=== PATIENT | female | born 1990 | race African-American/Black ===

== ENCOUNTER 2021-10-19 21:41 | Emergency (ER) | payer OTHER, SELFPAY ==
[2021-10-19 21:52] VITALS: BP 105/76; PULSE 82; RESP 20; TEMP 36.8; O2SAT 100; BMI 30.8
--- NOTE | 2021-10-19 22:54 | ED_ITS ---
HPI - Psych General Chief Complaint: Psychiatric Symptoms <ARABELLA Krishnamurthy Last Filed: 10/20/21 00:45> Stated Complaint: crisis <ARABELLA Krishnamurthy Last Filed: 10/20/21 00:45> Time Seen by Provider: 10/19/21 22:43 <ARABELLA Krishnamurthy Last Filed: 10/20/21 00:45> Source: patient <ARABELLA Krishnamurthy Last Filed: 10/20/21 00:45> Mode of arrival: ambulatory <ARABELLA Krishnamurthy Last Filed: 10/20/21 00:45> Limitations: no limitations <ARABELLA Krishnamurthy Last Filed: 10/20/21 00:45> History of Present Illness HPI Narrative: 31-year-old female past medical history of PE MDD, depression, anxiety, ADHD presenting to the emergency department with depression, intermittent suicidal ideation without particular plan x1 day. Patient tells me that this morning she was not doing well at all, she tells me this always happens to her before she gets her period, she tells me she is scheduled to see her therapist every Thursday however due to the holiday she will be able to see them, she tells me she is feeling extremely depressed, and was crying often this morning. She had thoughts of wanting to kill herself however no particular plan. She tells me she is not feeling as way anymore however she is worried that she was feeling this way earlier. Denies drugs, alcohol and tobacco. Denies visual and auditory hallucinations. Denies homicidal ideation and tactile hallucinations. Patient denies any medical complaints at this time. <ARABELLA Krishnamurthy Last Filed: 10/20/21 00:45> MD complaint: suicidal ideation and feels depressed <ARABELLA Krishnamurthy Last Filed: 10/20/21 00:45> Onset (ago): day(s) (1) <ARABELLA Krishnamurthy Last Filed: 10/20/21 00:45> Duration: constant <ARABELLA Krishnamurthy Last Filed: 10/20/21 00:45> History of same: Yes <ARABELLA Krishnamurthy Last Filed: 10/20/21 00:45> Relieving factors: none <ARABELLA Krishnamurthy Last Filed: 10/20/21 00:45> Exacerbating factors: none <ARABELLA Krishnamurthy Last Filed: 10/20/21 00:45> Related Data Allergies/Adverse Reactions: Allergies Allergy/AdvReac Type Severity Reaction Status Date / Time ziprasidone [From [facility] [place]] Allergy Intermediate RASH Unverified 11/03/19 15:59 <ARABELLA Krishnamurthy Last Filed: 10/20/21 00:45> Review of Systems Review of Systems: Constitutional : No Weight loss, No Fever, No Chills, No Fatigue, No Malaise ENT/Mouth : No sore throat, No Rhinorrhea Eyes: No Eye Pain, No Swelling, No Redness Cardiovascular : No Chest Pain, No SOB, No Dyspnea on Exertion, No Orthopnea, No Edema, No Palpitations Respiratory : No Cough, No Sputum, No Wheezing Gastrointestinal : No Nausea, No Vomiting, No Diarrhea, No Constipation, No abdominal Pain, No Hematochezia, No Melena Genitourinary : No Dysuria, No Urinary Frequency, No Hematuria, Musculoskeletal : No joint pain, No Myalgias, No Joint Swelling Skin : No Skin Lesions, No rash Neuro : No Weakness, No Numbness, No Dizziness, No Headache Psych : + Anxiety/Panic, + Depression, + SI, No HI All other systems reviewed and are negative <ARABELLA Krishnamurthy Last Filed: 10/20/21 00:45> Yes all other systems are reviewed and are negative <ARABELLA Krishnamurthy Last Filed: 10/20/21 00:45> [facility] Past Medical History Attestation statement: The following information was validated with the patient. <ARABELLA Krishnamurthy Last Filed: 10/20/21 00:45> Source: old records reviewed and nursing notes reviewed <ARABELLA Krishnamurthy Last Filed: 10/20/21 00:45> Social History Social History: Social History Advance Directives: No Advance Directives Information Provided: Yes <ARABELLA Krishnamurthy Last Filed: 10/20/21 00:45> Physical Exam Vital Signs: Vital Signs: Last Vital Signs Temp 98.3 F 10/20/21 00:25 Pulse 61 10/20/21 00:25 Resp 17 10/20/21 00:25 BP 108/63 10/20/21 00:25 Pulse Ox 99 10/20/21 00:25 O2 Del Method 10/20/21 00:25 BMI result Body Mass Index 30.8 Vital signs stable <ARABELLA Krishnamurthy - Last Filed: 10/20/21 00:45> Vital Signs: Last Vital Signs Temp 98.3 F 10/20/21 00:25 Pulse 61 10/20/21 00:25 Resp 17 10/20/21 00:25 BP 108/63 10/20/21 00:25 Pulse Ox 99 10/20/21 00:25 O2 Del Method 10/20/21 00:25 BMI result Body Mass Index 30.8 <Mak Beach MD - Last Filed: 10/20/21 04:33> Appearance: Alert.? Oriented X3.? No acute distress.? Head: Normocephalic, atraumatic, no step-offs or deformities Eyes: Pupils equal, round and reactive to light.? ENT: Pharynx normal.? Neck: Normal inspection.? Neck supple.? CVS: Normal heart rate and rhythm.? Pulses normal.? Respiratory: No respiratory distress.? Breath sounds normal.? Abdomen: Soft and nontender.? Skin: Skin warm and dry.? Normal skin color.? Normal skin turgor.? Extremities: No lower extremity edema.? No calf ttp. 5/5 strength to bilateral upper and lower extremities Back: No midline tenderness, no C-spine tenderness, full range of motion, no CVA tenderness bilaterally Neuro: Oriented X 3.? No motor deficit.? No sensory deficit. CN 2-12 intact <ARABELLA Krishnamurthy - Last Filed: 10/20/21 00:45> Course Reevaluation(s) Reevaluation #1: CBC within normal limits. Chemistry with no acute electrolyte abnormalities requiring intervention. UA without infection. Ethanol, salicylates and acetaminophen negative. COVID negative. Urine toxicology pending. <ARABELLA Krishnamurthy - Last Filed: 10/20/21 00:45> Time: 00:21 <ARABELLA Krishnamurthy - Last Filed: 10/20/21 00:45> Reevaluation #2: Utox pending. At this time patient will be placed into physician obse rvation to allow more time to be evaluated by the behavioral health team. At time observation was started patient common cooperative no acute distress. Will continue to monitor. <ARABELLA Krishnamurthy - Last Filed: 10/20/21 00:45> Time: 00:21 <ARABELLA Krishnamurthy - Last Filed: 10/20/21 00:45> Reevaluation #3: patient wanted to the the emergency department, I did review the note by the physician housekeeping assistant I did talk to the patient. The patient did have suicidal ideation but no active plan. The patient was placed on a Section 12 and the patient is willing to stay in the emergency department to evaluated by Crisis. <Mak Beach MD - Last Filed: 10/20/21 04:33> Time: 04:33 <Mak Beach MD - Last Filed: 10/20/21 04:33> MDM - Psych MDM Narrative Medical decision making narrative: 2250 31-year-old female presents with intermittent suicidal ideation, depression, PMDD x1 day. Physical examination benign. Plan at this time is medical clearance and evaluation by the behavioral health team. <ARABELLA Krishnamurthy - Last Filed: 10/20/21 00:45> Medical Records Attestation: I reviewed the patient's medical records. <ARABELLA Krishnamurthy - Last Filed: 10/20/21 00:45> Lab Data Attestation: I reviewed the patient's lab results. <ARABELLA Krishnamurthy Last Filed: 10/20/21 00:45> Result diagrams: : 10/19/21 23:33 10/19/21 23:33 <ARABELLA Krishnamurthy - Last Filed: 10/20/21 00:45> Labs: Lab Results 10/19/21 10/19/21 10/19/21 Range/Units 23:33 23:33 23:33 WBC 6.2 (4.8-10.8) X10*3/uL RBC 4.87 (4.20-5.50) X10*6/uL Hgb 14.7 (12.0-16.0) g/dl Hct 44.4 (37.0-47.0) % MCV 91.2 (80.0-98.0) fL MCH 30.2 (27.0-33.0) pg MCHC 33.1 (31.0-35.0) g/dl RDW 12.9 (11.0-16.0) % Plt Count 394 (160-400) X10*3/uL MPV 9.4 (9.4-12.3) fL Immature Gran % (Auto) 0.2 (0.0-0.4) % Neut % (Auto) 31.9 L (45-73) % Lymph % (Auto) 52.0 H (20-40) % [place]hen[place] % (Auto) 8.1 (2-11) % Eos % (Auto) 6.5 H (0-4) % Baso % (Auto) 1.3 (0-2) % Lymph # (Auto) 3.2 (1.2-4.9) X10*3/uL [place] # (Auto) 0.5 (0.1-1.2) X10*3/uL Eos # (Auto) 0.4 (0.0-0.4) X10*3/uL Baso # (Auto) 0.1 (0.0-0.2) X10*3/uL Abs Immat Gran (auto) 0.01 (0.00-0.03) X10*3/uL Absolute Neuts (auto) 2.0 (2.0-8.3) x10*3/uL Absolute Nucleated RBC 0.000 (0.0-0.012) X10*3/uL Nucleated RBC % (auto) 0.0 (0.0-0.2) /100WBC Sodium 141 (135-145) mmol/L Potassium 4.2 (3.3-5.1) mmol/L Chloride 104 (96-108) mmol/L Carbon Dioxide 27 (22-29) mmol/L Anion Gap 14 (12-20) BUN 19 H (9-16) mg/dL Creatinine 0.93 (0.5-1.4) mg/dL Estim Creat Clear Calc 77.4 Estimated GFR > 60 Random Glucose 92 (60-115) mg/dL Calcium 9.0 (8.4-10.2) mg/dL Magnesium 2.0 (1.6-2.6) mg/dL Total Bilirubin 0.5 (0.0-1.0) mg/dL AST 20 (5-31) U/L ALT 15 (0-31) U/L Alkaline Phosphatase 57 (39-117) U/L Total Protein 6.6 (6.5-8.0) g/dL Albumin 3.9 (3.5-5.0) g/dL Urine Color Urine Appearance Urine pH (5.0-9.0) Ur Specific [place] (1.005-1.025) Urine Protein (Neg-Trace) mg/dL Urine Glucose (UA) (Negative) mg/dL Urine Ketones (Negative) mg/dL Urine Blood (Negative) Urine Nitrite (Negative) Ur Leukocyte Esterase (Negative) Salicylates < 5.0 L (15-30) mg/dL Urine Opiates Screen (Not Detect) Urine Fentanyl Screen (Not Detect) Acetaminophen < 1 (<30) mcg/mL Ur Barbiturates Screen (Not Detect) Ur Phencyclidine Scrn (Not Detect) Ur Amphetamines Screen (Not Detect) U Benzodiazepines Scrn (Not Detect) Urine Cocaine Screen (Not Detect) U Marijuana (THC) Screen (Not Detect) Ethyl Alcohol < 10 mg/dL COVID-19 ([facility]) Negative (Negative) COVID-19 Clin Com See Note 10/19/21 10/19/21 Range/Units 23:47 23:47 WBC (4.8-10.8) X10*3/uL RBC (4.20-5.50) X10*6/uL Hgb (12.0-16.0) g/dl Hct (37.0-47.0) % MCV (80.0-98.0) fL MCH (27.0-33.0) pg MCHC (31.0-35.0) g/dl RDW (11.0-16.0) % Plt Count (160-400) X10*3/uL MPV (9.4-12.3) fL Immature Gran % (Auto) (0.0-0.4) % Neut % (Auto) (45-73) % Lymph % (Auto) (20-40) % [place]hen[place] % (Auto) (2-11) % Eos % (Auto) (0-4) % Baso % (Auto) (0-2) % Lymph # (Auto) (1.2-4.9) X10*3/uL [place] # (Auto) (0.1-1.2) X10*3/uL Eos # (Auto) (0.0-0.4) X10*3/uL Baso # (Auto) (0.0-0.2) X10*3/uL Abs Immat Gran (auto) (0.00-0.03) X10*3/uL Absolute Neuts (auto) (2.0-8.3) x10*3/uL Absolute Nucleated RBC (0.0-0.012) X10*3/uL Nucleated RBC % (auto) (0.0-0.2) /100WBC Sodium (135-145) mmol/L Potassium (3.3-5.1) mmol/L Chloride (96-108) mmol/L Carbon Dioxide (22-29) mmol/L Anion Gap (12-20) BUN (9-16) mg/dL Creatinine (0.5-1.4) mg/dL Estim Creat Clear Calc Estimated GFR Random Glucose (60-115) mg/dL Calcium (8.4-10.2) mg/dL Magnesium (1.6-2.6) mg/dL Total Bilirubin (0.0-1.0) mg/dL AST (5-31) U/L ALT (0-31) U/L Alkaline Phosphatase (39-117) U/L Total Protein (6.5-8.0) g/dL Albumin (3.5-5.0) g/dL Urine Color Yellow Urine Appearance Clear Urine pH 6.0 (5.0-9.0) Ur Specific [place] >= 1.030 H (1.005-1.025) Urine Protein Negative (Neg-Trace) mg/dL Urine Glucose (UA) Negative (Negative) mg/dL Urine Ketones Negative (Negative) mg/dL Urine Blood Negative (Negative) Urine Nitrite Negative (Negative) Ur Leukocyte Esterase Negative (Negative) Salicylates (15-30) mg/dL Urine Opiates Screen Not Detected (Not Detect) Urine Fentanyl Screen Not Detected (Not Detect) Acetaminophen (<30) mcg/mL Ur Barbiturates Screen Not Detected (Not Detect) Ur Phencyclidine Scrn Not Detected (Not Detect) Ur Amphetamines Screen POSITIVE H (Not Detect) U Benzodiazepines Scrn Not Detected (Not Detect) Urine Cocaine Screen Not Detected (Not Detect) U Marijuana (THC) Screen POSITIVE H (Not Detect) Ethyl Alcohol mg/dL COVID-19 ([facility]) (Negative) COVID-19 Clin Com <ARABELLA Krishnamurthy - Last Filed: 10/20/21 00:45> Lab Results 10/19/21 10/19/21 10/19/21 Range/Units 23:33 23:33 23:33 WBC 6.2 (4.8-10.8) X10*3/uL RBC 4.87 (4.20-5.50) X10*6/uL Hgb 14.7 (12.0-16.0) g/dl Hct 44.4 (37.0-47.0) % MCV 91.2 (80.0-98.0) fL MCH 30.2 (27.0-33.0) pg MCHC 33.1 (31.0-35.0) g/dl RDW 12.9 (11.0-16.0) % Plt Count 394 (160-400) X10*3/uL MPV 9.4 (9.4-12.3) fL Immature Gran % (Auto) 0.2 (0.0-0.4) % Neut % (Auto) 31.9 L (45-73) % Lymph % (Auto) 52.0 H (20-40) % Mchen[place] % (Auto) 8.1 (2-11) % Eos % (Auto) 6.5 H (0-4) % Baso % (Auto) 1.3 (0-2) % Lymph # (Auto) 3.2 (1.2-4.9) X10*3/uL [place] # (Auto) 0.5 (0.1-1.2) X10*3/uL Eos # (Auto) 0.4 (0.0-0.4) X10*3/uL Baso # (Auto) 0.1 (0.0-0.2) X10*3/uL Abs Immat Gran (auto) 0.01 (0.00-0.03) X10*3/uL Absolute Neuts (auto) 2.0 (2.0-8.3) x10*3/uL Absolute Nucleated RBC 0.000 (0.0-0.012) X10*3/uL Nucleated RBC % (auto) 0.0 (0.0-0.2) /100WBC Sodium 141 (135-145) mmol/L Potassium 4.2 (3.3-5.1) mmol/L Chloride 104 (96-108) mmol/L Carbon Dioxide 27 (22-29) mmol/L Anion Gap 14 (12-20) BUN 19 H (9-16) mg/dL Creatinine 0.93 (0.5-1.4) mg/dL Estim Creat Clear Calc 77.4 Estimated GFR > 60 Random Glucose 92 (60-115) mg/dL Calcium 9.0 (8.4-10.2) mg/dL Magnesium 2.0 (1.6-2.6) mg/dL Total Bilirubin 0.5 (0.0-1.0) mg/dL AST 20 (5-31) U/L ALT 15 (0-31) U/L Alkaline Phosphatase 57 (39-117) U/L Total Protein 6.6 (6.5-8.0) g/dL Albumin 3.9 (3.5-5.0) g/dL Urine Color Urine Appearance Urine pH (5.0-9.0) Ur Specific [place] (1.005-1.025) Urine Protein (Neg-Trace) mg/dL Urine Glucose (UA) (Negative) mg/dL Urine Ketones (Negative) mg/dL Urine Blood (Negative) Urine Nitrite (Negative) Ur Leukocyte Esterase (Negative) Salicylates < 5.0 L (15-30) mg/dL Urine Opiates Screen (Not Detect) Urine Fentanyl Screen (Not Detect) Acetaminophen < 1 (<30) mcg/mL Ur Barbiturates Screen (Not Detect) Ur Phencyclidine Scrn (Not Detect) Ur Amphetamines Screen (Not Detect) U Benzodiazepines Scrn (Not Detect) Urine Cocaine Screen (Not Detect) U Marijuana (THC) Screen (Not Detect) Ethyl Alcohol < 10 mg/dL COVID-19 ([facility]) Negative (Negative) COVID-19 Clin Com See Note 10/19/21 10/19/21 Range/Units 23:47 23:47 WBC (4.8-10.8) X10*3/uL RBC (4.20-5.50) X10*6/uL Hgb (12.0-16.0) g/dl Hct (37.0-47.0) % MCV (80.0-98.0) fL MCH (27.0-33.0) pg MCHC (31.0-35.0) g/dl RDW (11.0-16.0) % Plt Count (160-400) X10*3/uL MPV (9.4-12.3) fL Immature Gran % (Auto) (0.0-0.4) % Neut % (Auto) (45-73) % Lymph % (Auto) (20-40) % [place] % (Auto) (2-11) % Eos % (Auto) (0-4) % Baso % (Auto) (0-2) % Lymph # (Auto) (1.2-4.9) X10*3/uL [place] # (Auto) (0.1-1.2) X10*3/uL Eos # (Auto) (0.0-0.4) X10*3/uL Baso # (Auto) (0.0-0.2) X10*3/uL Abs Immat Gran (auto) (0.00-0.03) X10*3/uL Absolute Neuts (auto) (2.0-8.3) x10*3/uL Absolute Nucleated RBC (0.0-0.012) X10*3/uL Nucleated RBC % (auto) (0.0-0.2) /100WBC Sodium (135-145) mmol/L Potassium (3.3-5.1) mmol/L Chloride (96-108) mmol/L Carbon Dioxide (22-29) mmol/L Anion Gap (12-20) BUN (9-16) mg/dL Creatinine (0.5-1.4) mg/dL Estim Creat Clear Calc Estimated GFR Random Glucose (60-115) mg/dL Calcium (8.4-10.2) mg/dL Magnesium (1.6-2.6) mg/dL Total Bilirubin (0.0-1.0) mg/dL AST (5-31) U/L ALT (0-31) U/L Alkaline Phosphatase (39-117) U/L Total Protein (6.5-8.0) g/dL Albumin (3.5-5.0) g/dL Urine Color Yellow Urine Appearance Clear Urine pH 6.0 (5.0-9.0) Ur Specific [place] >= 1.030 H (1.005-1.025) Urine Protein Negative (Neg-Trace) mg/dL Urine Glucose (UA) Negative (Negative) mg/dL Urine Ketones Negative (Negative) mg/dL Urine Blood Negative (Negative) Urine Nitrite Negative (Negative) Ur Leukocyte Esterase Negative (Negative) Salicylates (15-30) mg/dL Urine Opiates Screen Not Detected (Not Detect) Urine Fentanyl Screen Not Detected (Not Detect) Acetaminophen (<30) mcg/mL Ur Barbiturates Screen Not Detected (Not Detect) Ur Phencyclidine Scrn Not Detected (Not Detect) Ur Amphetamines Screen POSITIVE H (Not Detect) U Benzodiazepines Scrn Not Detected (Not Detect) Urine Cocaine Screen Not Detected (Not Detect) U Marijuana (THC) Screen POSITIVE H (Not Detect) Ethyl Alcohol mg/dL COVID-19 ([facility]) (Negative) COVID-19 Clin Com <Mak Beach MD - Last Filed: 10/20/21 04:33> Critical Care Time Critical Care Time Critical Care Time: No <ARABELLA Krishnamurthy - Last Filed: 10/20/21 00:45> Discharge Plan Discharge Clinical Impression: Anxiety, Depression, PMDD (premenstrual dysphoric disorder) <ARABELLA Krishnamurthy - Last Filed: 10/20/21 00:45> Patient Disposition: Still a Patient <ARABELLA Krishnamurthy - Last Filed: 10/20/21 00:45>
[2021-10-19 23:39] LABS: Basophils Absolute Auto 0.1 X10*3/uL (0.0-0.2); Basophils Percent Auto 1.3 % (0-2); Eosinophils Absolute Auto 0.4 X10*3/uL (0.0-0.4); Eosinophils Percent Auto 6.5 % (0-4); Hematocrit 44.4 % (37.0-47.0); Hemoglobin 14.7 g/dl (12.0-16.0); Imm Gran Abs Auto 0.01 X10*3/uL (0.00-0.03); Imm Gran Pct Auto 0.2 % (0.0-0.4); Lymphocytes Absolute Auto 3.2 X10*3/uL (1.2-4.9); MANUAL DIFF FLAG NO; Mean Corpuscular HGB Conc 33.1 g/dl (31.0-35.0); Mean Corpuscular Hemoglobin 30.2 pg (27.0-33.0); Mean Corpuscular Volume 91.2 fL (80.0-98.0); Mean Platelet Volume 9.4 fL (9.4-12.3); Monocytes Absolute Auto 0.5 X10*3/uL (0.1-1.2); Monocytes Percent Auto 8.1 % (2-11); Neutrophils Percent Auto 31.9 % (45-73); Platelet Count 394 X10*3/uL (160-400); Red Blood Count 4.87 X10*6/uL (4.20-5.50); Red Cell Distribution Width 12.9 % (11.0-16.0); White Blood Count 6.2 X10*3/uL (4.8-10.8)
--- NOTE | 2021-10-19 23:47 | PC.NURSE ---
PT changed over and put with a sitter. Pt states that she is not SI but this morning felt like she wanted to . She has no plan to kill herself. Just wants to talk to someone because her usual therapy session in on and because of the holiday it was cancelled. Pt belongings locked in locker #10.
[2021-10-19 23:56] LABS: COVID-19 Test Negative (Negative)
[2021-10-19 23:59] LABS: Appearance Urine Clear; Color Urine Yellow; Glucose Urine UA Negative (Negative); Leukocyte Esterase Urine Negative (Negative); Nitrite Urine Negative (Negative); Specific Gravity - Urine >= 1.030 (1.005-1.025); Urine Blood Negative (Negative); Urine Ketones Negative (Negative); Urine Protein Negative (Neg-Trace)
[2021-10-20] LABS: Alanine Aminotransferase 15 U/L (0-31); Albumin Level 3.9 g/dL (3.5-5.0); Alkaline Phosphatase 57 U/L (39-117); Anion Gap 14 (12-20); Aspartate Amino Transferase 20 U/L (5-31); Bilirubin Total 0.5 mg/dL (0.0-1.0); Blood Urea Nitrogen 19 mg/dL (9-16); Carbon Dioxide 27 mmol/L (22-29); Chloride 104 mmol/L (96-108); Creatinine Clr Calc Pharmacy 77.4; Estimated Glomerular Filt Rate > 60; Ethanol < 10 mg/dL; Glucose Random 92 mg/dL (60-115); Potassium 4.2 mmol/L (3.3-5.1); Sodium 141 mmol/L (135-145); Total Protein 6.6 g/dL (6.5-8.0)
[2021-10-20 00:13] LABS: Acetaminophen LAB < 1 mcg/mL (<30); Salicylate < 5.0 mg/dL (15-30)
--- NOTE | 2021-10-20 00:22 | PC.NURSE ---
Pt resting, 1:[address] bedside, safety maintained, this RN continues to monitor.
[2021-10-20 00:25] VITALS: BP 108/63; PULSE 61; RESP 17; TEMP 36.8; O2SAT 99
[2021-10-20 01:06] LABS: Amphetamine Screen Urine POSITIVE (Not Detect); Barbiturates, Urine Not Detected (Not Detect); Benzodiazepines Screen Urine Not Detected (Not Detect); Cannabinoid Screen Urine POSITIVE (Not Detect); Cocaine Screen Urine Not Detected (Not Detect); Fentanyl, urine Not Detected (Not Detect); Opiate Screen Urine Not Detected (Not Detect); Phencyclidine Screen Urine Not Detected (Not Detect)
--- NOTE | 2021-10-20 02:15 | PC.NURSE ---
Pt resting, 1:1 sitter at bedside, safety maintained, this RN continues to monitor.
--- NOTE | 2021-10-20 05:04 | PC.NURSE ---
Pt requesting to go home, Dr Barajas made aware, Pt is now a Sec12, Pt made aware, Pt remained, calm/cooperative/pleasant.
--- NOTE | 2021-10-20 05:05 | PC.NURSE ---
Pt resting, 1:1 sitter at bedside, safety maintained, this RN continues to monitor.
[2021-10-20 06:40] VITALS: BP 128/71; PULSE 64; RESP 14; O2SAT 100
--- NOTE | 2021-10-20 08:30 | PC.NURSE ---
Handoff received. Pt is currently sleeping. No apparent distress. Breaths are even and unlabored. Will continue to monitor.
== END 2021-10-20 10:45 | disposition home or self-care (01) ==
PROVIDERS: Physician Assistant; Emergency Provider Emergency Medicine Emergency Medical Services; PCP Internal Medicine
DX: F32.81 Premenstrual dysphoric disorder (principal); R45.851 Suicidal ideations; F41.9 Anxiety disorder, unspecified; F32.9 Major depressive disorder, single episode, unspecified; F90.9 Attention-deficit hyperactivity disorder, unspecified type; Z20.822 Contact with and (suspected) exposure to COVID-19; F12.90 Cannabis use, unspecified, uncomplicated
CPT/HCPCS: 80053; 80143; 80179; 80307; 81003; 82077; 83735; 85025; 87635; 99283; 99285

== ENCOUNTER 2021-10-27 22:07 | Emergency (ER) | payer OTHER, SELFPAY ==
[2021-10-27 22:56] VITALS: BP 126/66; PULSE 67; RESP 14; TEMP 36.7; O2SAT 100; BMI 30.4
[2021-10-28 00:02] VITALS: BP 125/68; PULSE 92; RESP 18; TEMP 36.7; O2SAT 100
--- NOTE | 2021-10-28 00:35 | ED.WOUNDLAC ---
HPI - Wound/Laceration General Chief Complaint: Extremity Problem Stated Complaint: finger lac Time Seen by Provider: 10/27/21 23:30 Source: patient Mode of arrival: ambulatory Limitations: no limitations History of Present Illness HPI narrative: Patient comes to the emergency room complaining of a laceration to the index finger on the left hand. Patient was cooking at home, patient states she was holding the knife in the wrong position, and accidentally lacerated her finger. Patient is not sure when her last tetanus shot was given. Patient denies fever chills, no other injuries Related Data Allergies Allergy/AdvReac Type Severity Reaction Status Date / Time ziprasidone [From [facility]] Allergy Intermediate RASH Unverified 11/03/19 15:59 Review of Systems Review of Systems: Constitutional : No Weight loss, No Fever, No Chills, No Night Sweats, No Fatigue, No Malaise ENT/Mouth : No Hearing loss, No Ear Pain, No Nasal Congestion, No Sinus Pain, No Hoarseness, No sore throat, No Rhinorrhea, No Swallowing Difficulty Eyes: No Eye Pain, No Swelling, No Redness, No Foreign Body, No Discharge, No Vision Changes Cardiovascular : No Chest Pain, No SOB, No Dyspnea on Exertion, No Orthopnea, No Edema, No Palpitations Respiratory : No Cough, No Sputum, No Wheezing, No Smoke Exposure, No Dyspnea Gastrointestinal : No Nausea, No Vomiting, No Diarrhea, No Constipation, No abdominal Pain, No Hematochezia, No Melena Genitourinary : no irregular bleeding, No Dysuria, No Urinary Frequency, No Hematuria, No Urinary Incontinence, No Urgency, No Flank Pain, No Urinary Flow Changes, No Hesitancy Musculoskeletal : No joint pain, No Myalgias, No Joint Swelling Skin : Laceration to the dorsal aspect of the left hand/finger Neuro : No Weakness, No Numbness, No Paresthesias, No Loss of Consciousness, No Dizziness, No Headache Psych : No Anxiety/Panic, No Depression, No SI/HI/AH/VH, No Social Issues, Heme/Lymph: No Bruising, No Bleeding,No Lymphadenopathy Endocrine : No Polyuria, No Polydipsia, No Temperature Intolerance PMFSH Social History Social History Advance Directives: No Advance Directives Information Provided: Yes Physical Exam Vital Signs: Vital Signs: Last Vital Signs Temp 98.0 F 10/28/21 00:02 Pulse 92 10/28/21 00:02 Resp 18 10/28/21 00:02 BP 125/68 10/28/21 00:02 Pulse Ox 100 10/28/21 00:02 O2 Del Method 10/28/21 00:02 BMI result Body Mass Index 30.4 Const: Other: Appearance: Alert. Oriented X3. No acute distress. Eyes: Pupils equal, round and reactive to light. ENT: Pharynx normal. Neck: Normal inspection. Neck supple. No lymph nodes noted. No crepitus CVS: Normal heart rate and rhythm. Pulses normal. Normal S1 and S2 Respiratory: No respiratory distress. Breath sounds normal. No Wheezing. No rales Abdomen: Soft and nontender. No rigidity. No distention. Skin: Skin warm and dry. There is a laceration to the dorsal aspect of the left index finger, U shaped, approximately 2 cm long Extremities: No lower extremity edema. No Lacerations. No Rash. Patient is able to flex and extend all fingers, Neuro: Oriented X 3. No motor deficit. No sensory deficit. Moving all extremities. No slurred speech. CN 2 through 12 grossly intact Psych: calm, cooperative, normal affect Course Course Course Narrative: Patient has full range of motion in all the fingers, tendon laceration is not suspected. Patient was giving a Tdap booster today. Procedures Laceration Laceration 1: Description: irregular Depth: simple, single layer Local Anesthetic: lidocaine 1% Amount of anesthesia used (mL): 2 Pre-repair: wound explored (Examined under bloodless field) Skin layer closed with: nylon Size (cm): 5-0 Number of sutures: 7 Technique: simple, interrupted Discharge Plan Discharge Clinical Impression: Laceration of finger of left hand Patient Disposition: Home, Self-Care Instructions: Finger Laceration (ED) Additional Instructions: Your stitches need to be removed in 7-10 days. If you see any signs of infection such as redness, pus drainage, fever or chills, please return immediately to the emergency room. Please follow-up with your primary care physician tomorrow. If you have any worsening or new symptoms, please return to the emergency room or call 911
== END 2021-10-28 01:08 | disposition home or self-care (01) ==
PROVIDERS: Emergency Provider Emergency Medicine; PCP Internal Medicine
DX: S61.211A Laceration without foreign body of left index finger without damage to nail, initial encounter (principal); W26.0XXA Contact with knife, initial encounter; Y93.9 Activity, unspecified; Y92.000 Kitchen of unspecified non-institutional (private) residence as the place of occurrence of the external cause; Y99.9 Unspecified external cause status
CPT/HCPCS: 12011; 90471; 90472; 99284

== ENCOUNTER 2024-04-20 11:54 | Emergency (ER) | payer MEDICAID, SELFPAY ==
--- NOTE | ~2024-04-20 | XR_ITS ---
EXAMINATION: XR CHEST CLINICAL INFORMATION: upper abd/back pain s/p emesis COMPARISON: None available. TECHNIQUE: 2 views of the chest were obtained. FINDINGS: No significant abnormality is noted involving the heart, lungs, mediastinum, bony thorax or soft tissues. XR/XR chest 2V IMPRESSION: Unremarkable chest examination. Electronically signed by: Eddy Chavez MD 04/20/2024 12:55 PM EST
--- NOTE | ~2024-04-20 | CT_ITS ---
CLINICAL HISTORY: forcing vomiting,CP epi pain,R O esophageal perfor CT chest with contrast Comparison: None Findings: The heart size is normal. The visualized thyroid and mediastinum are unremarkable. There is no pneumomediastinum to suggest esophageal perforation. No oral contrast is noted within the mediastinum. No adenopathy or pericardial effusion. Lungs exhibit mild centrilobular emphysema of the apices. No effusion. No pneumothorax. Mild dependent changes of the lung bases. No acute osseous abnormality. The visualized upper abdomen demonstrates no definite acute process. The pancreas is well-visualized and appears normal. No free air under the diaphragm. Impression: No evidence of esophageal perforation or alternate acute process by CT. This document has been electronically signed by: Renard Benavides MD on 04/20/2024 21:09:08
[2024-04-20 12:06] VITALS: BP 127/67; PULSE 76; RESP 16; TEMP 36.7; O2SAT 96; BMI 31.0
--- NOTE | 2024-04-20 12:11 | ED_ITS ---
HPI - Abdominal Pain General Chief Complaint: Back Pain/Injury Stated Complaint: Back Pain No Injury Time Seen by Provider: 04/20/24 18:59 Source: patient and family Mode of arrival: ambulatory Limitations: no limitations History of Present Illness ED Provider: DR. Tena HPI narrative: 34-year-old female with history of bulimia nervosa in the habit of bingeing and purging, patient was forcibly inducing vomiting over the last 2 days and shortly after that started to have lower chest pain radiating to her back that has been constant for 4 days now. No SOB, no fever, no chills. No history of alcohol use. Patient is waiting to see a psychiatrist for her symptoms. Related Data Previous Rx's ?Medication ?Instructions ?Recorded nitrofurantoin 100 mg PO Q12H 7 days #14 caps 04/20/24 monohydrate/macrocrystals 100 mg capsule (Macrobid) omeprazole 40 mg capsule,delayed 40 mg PO DAILY #30 caps 04/20/24 release Allergies Allergy/AdvReac Type Severity Reaction Status Date / Time ziprasidone [From GEODON] Allergy Intermediate RASH Verified 04/20/24 12:07 Review of Systems Review of Systems All other systems are reviewed and are negative Constitutional: Reports as per HPI and Reports no additional constitutional complaints Eyes: Reports as per HPI and Reports no additional eye complaints Reports system reviewed and no additional complaints, except as documented Cardiovascular: Reports as per HPI and Reports no additional cardiovascular complaints Respiratory: Reports as per HPI and Reports no additional respiratory complaints Gastrointestinal: Reports as per HPI and Reports no additional gastrointestinal complaints Genitourinary: Reports no additional female genitourinary complaints Musculoskeletal: Reports no additional musculoskeletal complaints Skin/Breast: Reports system reviewed and no additional complaints, except as docu Psychiatric: Reports no additional psychiatric complaints Endocrine: Reports no additional endocrine complaints Hematologic/Lymphatic: Reports no additional hematologic/lymphatic complaints Allergic/Immunologic: Reports no additional allergic/immunologic complaints Reports system reviewed and no additional complaints, except as documented and Reports Abnormal speech present PMFSH Social History Social History Advance Directives: No Advance Directives Information Provided: Yes Do you have a plan to hurt others: No Plan Physical Exam ED Vital Signs: Vital Signs - 24 hr 04/20/24 12:06 04/20/24 17:47 04/20/24 20:32 Temperature 98.0 F 98.5 F 97.6 F Pulse Rate 76 72 60 Respiratory Rate 16 12 18 Blood Pressure 127/67 137/79 162/88 H Pulse Oximetry 96 96 100 Oxygen Delivery Method Room Air Room Air Room Air BMI result Body Mass Index 31.0 Vital signs have been reviewed and appear to be correct. Blood pressure elevated. Heart rate normal. Respiratory rate normal. Temperature normal. Oxygen saturation normal. Appearance: Alert. Oriented X3. No acute distress. Head: Normal external exam. Normocephalic. Atraumatic. No Joseph signs noted. No raccoon eyes noted Eyes: PERRLA. EOMI. Conjunctiva and sclera normal. Eyelids normal. ENT: TM's Normal. Pharynx normal. Uvula midline. Moist mucous membranes. No trismus noted. No drooling noted. No muffled voice noted. Neck: Normal inspection. Neck supple. FROM. No adenopathy. Thyroid Normal. No meningeal signs. No neck mass noted. CVS: Normal heart rate and rhythm. Heart sound normal. No murmurs noted. Pulses normal throughout. Respiratory: No respiratory distress. Painless inspiration. Breath sounds normal. No wheezes/rales/rhonchi noted. Chest nontender. No accessory muscle usage noted or decreased air movement noted. Abdomen: Epigastric tenderness, no rebound tenderness, no guarding, Bowel sounds normal in all 4 quadrants. No distention noted. No organomegaly noted. No visible injury noted. Back: No CVA tenderness. Full range of motion noted. Skin: Skin warm and dry. Normal skin color. Normal skin turgor. No rashes/lesions/lacerations noted. Extremities: No lower extremity edema. Extremities exhibit normal range of motion. Extremities nontender. Neuro: Oriented X 3. Cranial nerve exam: II-XII are grossly intact No motor deficit. No sensory deficit. Reflexes normal. Course Course Course Narrative: This is a Rapid Medical Exam performed in triage by Stefany Ty PA-C. Full HPI, ROS and PE to be performed by primary ED provider. 34-year-old female presenting to the ED c/o upper abdominal, back, and chest burning s/p multiple episodes of emesis on or Thursday night. States she has an eating disorder and she ate and purged,, symptoms began after this incident. Reports difficulty eating since incident due to pain. PE: Abdomen is soft/nontender. No reproducible back pain/rash Plan: EKG, labs, UA, CXR Reevaluation(s) Reevaluation #1: 34-year-old female with epigastric pain/low chest pain radiating to her back after induced forcible vomiting. Boerhaave syndrome is not likely after negative chest x-ray/CT with p.o. contrast still reviewed by myself waiting for the radiologist to read shows no free air or evidence of viscus perforation or contrast extravasation signed out to Dr. Dixon to check the official reading. If CT is negative by official reading patient can go home with PPI, refrain from and using vomiting. UA reveals UTI will start on Ceftin. Time: 20:00 Medical Decision Making Differential Diagnosis Differential Diagnoses: The differential diagnosis associated with the presentation includes (Boerhaave syndrome, Leah-Michael, esophagitis, gastritis, gastroenteritis, perforated viscus, pancreatitis, cholecystitis, colitis, , UTI.) Admission/Observation Consideration of admission/observation: Escalation of care including admission/observation considered Lab Data MDM Lab Attestation statement: I reviewed the patient's lab results. 04/20/24 13:37 04/20/24 13:37 Labs: Lab Results 04/20/24 04/20/24 Range/Units 13:26 13:37 WBC 5.3 (4.8-10.8) X10*3/uL RBC 4.63 (4.20-5.50) X10*6/uL Hgb 13.8 (12.0-16.0) g/dl Hct 41.1 (37.0-47.0) % MCV 88.8 (80.0-98.0) fL MCH 29.8 (27.0-33.0) pg MCHC 33.6 (31.0-35.0) g/dl RDW 12.2 (11.0-16.0) % Plt Count 407 H (160-400) X10*3/uL MPV 9.5 (9.4-12.3) fL Immature Gran % (Auto) 0.2 (0.0-0.4) % Neut % (Auto) 41.5 L (45-73) % Lymph % (Auto) 38.8 (20-40) % [place] % (Auto) 7.8 (2-11) % Eos % (Auto) 10.6 H (0-4) % Baso % (Auto) 1.1 (0-2) % Lymph # (Auto) 2.1 (1.2-4.9) X10*3/uL [place] # (Auto) 0.4 (0.1-1.2) X10*3/uL Eos # (Auto) 0.6 H (0.0-0.4) X10*3/uL Baso # (Auto) 0.1 (0.0-0.2) X10*3/uL Abs Immat Gran (auto) 0.01 (0.00-0.03) X10*3/uL Absolute Neuts (auto) 2.2 (2.0-8.3) x10*3/uL Absolute Nucleated RBC 0.000 (0.0-0.012) X10*3/uL Nucleated RBC % (auto) 0.0 (0.0-0.2) /100WBC Sodium 140 (135-145) mmol/L Potassium 3.9 (3.3-5.1) mmol/L Chloride 110 H (96-108) mmol/L Carbon Dioxide 26 (22-29) mmol/L Anion Gap 8 L (12-20) BUN 17 H (9-16) mg/dL Creatinine 0.73 (0.5-1.4) mg/dL Estim Creat Clear Calc 96.1 Estimated GFR > 60 Random Glucose 75 (60-115) mg/dL Calcium 8.7 (8.4-10.2) mg/dL Magnesium 1.9 (1.6-2.6) mg/dL Total Bilirubin 0.6 (0.0-1.0) mg/dL Direct Bilirubin 0.2 (0.0-0.5) mg/dL AST 25 (5-31) U/L ALT 14 (0-31) U/L Alkaline Phosphatase 44 (39-117) U/L Total Protein 6.8 (6.5-8.0) g/dL Albumin 3.6 (3.5-5.0) g/dL Lipase 31 (8-78) U/L Urine Color Yellow Urine Appearance Clear Urine pH 6.5 (5.0-9.0) Ur Specific Bath >= 1.030 H (1.005-1.025) Urine Protein Negative (Neg-Trace) mg/dL Urine Glucose (UA) Negative (Negative) mg/dL Urine Ketones Trace (Negative) mg/dL Urine Blood Trace H (Negative) Urine Nitrite Negative (Negative) Ur Leukocyte Esterase Trace H (Negative) Urine RBC 0-2 (0-2) /HPF Urine WBC >50 H (0-5) /HPF Ur Squamous Epith Cells 3-5 (0-2) /HPF Urine Bacteria None Seen (None Seen) Hyaline Casts 0-2 (0-2) /LPF Urine Test NEGATIVE (NEGATIVE) Independent Interpretation I performed an independent interpretation of an: EKG (Normal sinus rhythm at 68 beats per minutes, nonspecific T-wave abnormality, no significant change from previous EKG.) and Plain X-Ray (Chest: Unremarkable chest examination.) Radiology Impression Discussion of test interpretation with radiology: I have reviewed the radiologist's reading. Medications Administered Discontinued Medications Generic Name Dose Route Start Last Admin Trade Name Freq PRN Reason Stop Dose Admin Al Hydroxide/Mg Hydroxide 30 ml 04/20/24 18:59 04/20/24 19:47 Magnesium Hydrox/Alum Hydrox 30 Ml Oral.Susp PO 04/20/24 19:00 30 ml ONCE ONE Administration Famotidine 20 mg 04/20/24 18:59 04/20/24 19:47 Famotidine/Pf 20 Mg/2 Ml Vial IVPUSH 04/20/24 19:00 20 mg ONCE ONE Administration Iohexol 65 ml 04/20/24 20:23 04/20/24 20:24 Iohexol 350 Mg/Ml 100 Ml Infus..Btl IV 04/20/24 20:24 65 ml ONCE ONE Administration Discharge Plan Discharge Clinical Impression: Esophagitis, UTI (urinary tract infection) Patient Disposition: Still a Patient Instructions: Esophagitis (ED) Prescriptions: New omeprazole 40 mg capsule,delayed release(DR/EC) 40 mg PO DAILY Qty: 30 0RF nitrofurantoin monohyd/m-cryst [Macrobid] 100 mg capsule 100 mg PO Q12H 7 Days Qty: 14 0RF Rx Instructions: must administer with a meal/food Referrals: Mc Mckinley MD [Primary Care Provider] - Radha Ring MD [Physician] - Print Language: Croatian
--- NOTE | 2024-04-20 12:14 | ECG_ITS ---
Test Reason : CHEST BURNING Blood Pressure : */* mmHG Vent. Rate : 68 BPM Atrial Rate : 68 BPM P-R Int : 148 ms QRS Dur : 84 ms QT Int : 382 ms P-R-T Axes : 57 54 60 degrees QTcB Int : 406 ms Normal sinus rhythm Nonspecific T wave abnormality Abnormal ECG When compared with ECG of 10-Feb-2015 13:39, Borderline criteria for Inferior infarct are no longer Present Referred By: Stefany Ty Electronically Signed By: DAIANA GARCIA MD
[2024-04-20 13:57] LABS: Basophils Absolute Auto 0.1 X10*3/uL (0.0-0.2); Basophils Percent Auto 1.1 % (0-2); Eosinophils Absolute Auto 0.6 X10*3/uL (0.0-0.4); Eosinophils Percent Auto 10.6 % (0-4); Hematocrit 41.1 % (37.0-47.0); Hemoglobin 13.8 g/dl (12.0-16.0); Imm Gran Abs Auto 0.01 X10*3/uL (0.00-0.03); Imm Gran Pct Auto 0.2 % (0.0-0.4); Lymphocytes Absolute Auto 2.1 X10*3/uL (1.2-4.9); Lymphocytes Percent Auto 38.8 % (20-40); MANUAL DIFF FLAG NO; Mean Corpuscular HGB Conc 33.6 g/dl (31.0-35.0); Mean Corpuscular Hemoglobin 29.8 pg (27.0-33.0); Mean Corpuscular Volume 88.8 fL (80.0-98.0); Mean Platelet Volume 9.5 fL (9.4-12.3); Monocytes Absolute Auto 0.4 X10*3/uL (0.1-1.2); Monocytes Percent Auto 7.8 % (2-11); Neutrophils Absolute Auto 2.2 x10*3/uL (2.0-8.3); Neutrophils Percent Auto 41.5 % (45-73); Platelet Count 407 X10*3/uL (160-400); Red Blood Count 4.63 X10*6/uL (4.20-5.50); Red Cell Distribution Width 12.2 % (11.0-16.0); White Blood Count 5.3 X10*3/uL (4.8-10.8)
[2024-04-20 14:00] LABS: Appearance Urine Clear; Color Urine Yellow; Glucose Urine UA Negative (Negative); Leukocyte Esterase Urine Trace (Negative); Nitrite Urine Negative (Negative); PH 6.5 (5.0-9.0); Specific Gravity - Urine >= 1.030 (1.005-1.025); UMIC TRIGGER UACC YES; Urine Blood Trace (Negative); Urine Ketones Trace mg/dL (Negative); Urine Protein Negative (Neg-Trace)
[2024-04-20 14:02] LABS: UPreg QC Valid YES; Urine Pregnancy NEGATIVE (NEGATIVE)
[2024-04-20 14:03] LABS: Bacteria Urine None Seen (None Seen); Hyaline Casts Urine 0-2 /LPF (0-2); RBC Urine 0-2 /HPF (0-2); UACC Culture Trigger YES; WBC Urine >50 /HPF (0-5)
[2024-04-20 14:12] LABS: Alanine Aminotransferase 14 U/L (0-31); Albumin Level 3.6 g/dL (3.5-5.0); Alkaline Phosphatase 44 U/L (39-117); Anion Gap 8 (12-20); Aspartate Amino Transferase 25 U/L (5-31); Bilirubin Direct 0.2 mg/dL (0.0-0.5); Bilirubin Total 0.6 mg/dL (0.0-1.0); Blood Urea Nitrogen 17 mg/dL (9-16); Calcium 8.7 mg/dL (8.4-10.2); Carbon Dioxide 26 mmol/L (22-29); Chloride 110 mmol/L (96-108); Creatinine Clr Calc Pharmacy 96.1; Estimated Glomerular Filt Rate > 60; Glucose Random 75 mg/dL (60-115); Lipase 31 U/L (8-78); Magnesium 1.9 mg/dL (1.6-2.6); Potassium 3.9 mmol/L (3.3-5.1); Sodium 140 mmol/L (135-145); Total Protein 6.8 g/dL (6.5-8.0)
[2024-04-20 17:47] VITALS: BP 137/79; PULSE 72; RESP 12; TEMP 36.9; O2SAT 96
--- OUTSIDE RECORDS SUMMARY | 2024-04-20 19:36 | XMS_ITS | Patient Health Record ---
Author Organization [facility] mateo GarciaJean-Paul Address [address] [place] [address] Care Team Providers Care Cigar Wrapper Name Role Phone Mc Mckinley MD Primary Care Provider Luciano Cavazos Unavailable [phone] Allergies Allergen (clinical drug ingredient) Drug/Non Drug Allergy documented on EMR Reaction Allergy Type Onset Date Status ziprasidone Geodon rash Drug Allergy Activ e Adhesive rash Allergy Active Reason For Referral No Information Medications Medication SIG (Take, Route, Frequency, Duration) Notes Start Date End Date Status cloNIDine HCl 0.1 MG 1 tablet Orally Onc e a day Active Dextroamphetamine Sulfate 5 MG 1 tablet Orally Twice a day Active Loratadine 10 MG 1 tablet Orally Once a day for 30 day(s) Active Prazosin HCl 2 MG 1 capsule at bedtime Orally Once a day for 30 day(s) Active Immunizations Vaccine Route Administration Date Status Comme nts COVID-19 Alfredo & Alfredo/Aaron Unknown 02/11/2021 Administered 1st 05/23/2020 Influenza Unknown 12/10/2020 Administered Social History Tobacco Use: Social History Observation Description Date Details (start date - stop date) Never Smoker NA - NA Tobacco Use/Smoking Question Answer Notes Are you a: nonsmoker Alcohol Screen Question Answer Notes Did you have a drink containing alcohol in the p ast year? No Points 0 Interpretation Negative Tobacco use other than smoking: Question Answer Notes Are you an other tobacco user? No Problems Problem Type SNOMED Code ICD Code Onset Dates Problem Status W/U Status Risk Notes Problem [id number] Type 2 diabetes mellitus without complication, without long-term current use of insulin (E11.9) Active confirmed Plan Of Treatment Pending Test Test Name Order Date X ray : Foot, right 3V 02/12/2021 X ray : Foot, right 3V 09/26/2022 Insurance Providers Payer Name Payer Address Payer Phone Subscriber Number Group Number Insured Name Patient Relationship to Insured Coverage Start Date Coverage End Date [employer] [address] [place] [phone] [id number] Nicky Cheatham Self - patient is the insured [facility] [address] [place] [phone] [id number] Nicky Cheatham Self - patient is the insured Medical (General) History Medical History History ICD Code Anxiety asthma Depression type II diabetes Psoriasis Poor circulation Numbness raynauds disease Surgical History Surgery Date(Month/Year)
[2024-04-20] MEDS: Magnesium Hydrox/Alum Hydrox 30 ML ORAL.SUSP PO (19:47)
[2024-04-20] MEDS: Famotidine/PF 20 MG/2 ML VIAL IVPUSH (19:47)
--- NOTE | 2024-04-20 19:48 | PC.NURSE ---
Took over care from [place] at 19:00 pt medicated per mar and IV placed by ultra [facility] in right AC
[2024-04-20] MEDS: iohexoL 350 MG/ML 100 ML INFUS..BTL 65 ML IV (20:24)
[2024-04-20 20:32] VITALS: BP 162/88; PULSE 60; RESP 18; TEMP 36.4; O2SAT 100
[2024-04-20] MEDS: Morphine Sulfate 2 MG/ML CARTRIDGE IVPUSH (21:07)
--- NOTE | 2024-04-20 21:10 | PC.NURSE ---
medicated per Dr gris pandey into discuss plan of care.
--- NOTE | 2024-04-20 22:19 | PC.NURSE ---
Iv removed, reviewed discharge instructions with pt. pt verbalized understanding, no sign of distress upon discharge.
== END 2024-04-20 22:20 | disposition still patient (30) ==
PROVIDERS: Physician Assistant; Emergency Provider Emergency Medicine; PCP Internal Medicine
DX: K20.90 Esophagitis, unspecified without bleeding (principal); N39.0 Urinary tract infection, site not specified; F50.20 Bulimia nervosa, unspecified
CPT/HCPCS: 36415; 71046; 71260; 80048; 80076; 81001; 81003; 81025; 83690; 83735; 85025; 87086; 87088; 87186; 93005; 96374; 96375; 99285; J2270; Q9967

== ENCOUNTER → 2024-04-20 12:12 | Outpatient (BNV) | payer OTHER, SELFPAY | PROVIDERS: PCP Internal Medicine; Visit Provider Radiology Diagnostic Radiology | DX: R07.9 Chest pain, unspecified (principal); R10.10 Upper abdominal pain, unspecified; M54.9 Dorsalgia, unspecified | CPT/HCPCS: 71046; 71260 ==

== ENCOUNTER → 2024-04-20 12:14 | Outpatient (BNV) | payer OTHER, SELFPAY | PROVIDERS: PCP Internal Medicine; Visit Provider Internal Medicine Cardiovascular Disease | DX: R94.31 Abnormal electrocardiogram [ECG] [EKG] (principal); R12 Heartburn | CPT/HCPCS: 93010 ==